=== PATIENT | female | born 1975 | race Caucasian/White ===

== ENCOUNTER 2023-11-26 22:47 | Emergency (ER) | payer OTHER ==
[~2023-11-26] VITALS: Ht 170.2 cm; Wt 85.3 kg
[2023-11-26 22:52] VITALS: BP_SYST 124; PULSE 69; RESP 18; TEMP 97.3; O2SAT 98
[2023-11-27] MEDS: KETOROLAC TROMETHAMINE 60 MG/2 ML VIAL IM ONE (00:10)
[2023-11-27] MEDS ORDERED: NAPR-1172 PO (01:48)
[2023-11-27 01:52] VITALS: BP_SYST 124; PULSE 69; RESP 18; TEMP 97.3; O2SAT 98
== END 2023-11-27 01:52 | disposition home or self-care (01) ==
LOC: SED 22:47
DX: S33.5XXA Sprain of ligaments of lumbar spine, initial encounter (principal); Z79.899 Other long term (current) drug therapy; X58.XXXA Exposure to other specified factors, initial encounter; Y93.89 Activity, other specified; Y92.89 Other specified places as the place of occurrence of the external cause; Y99.8 Other external cause status
CPT/HCPCS: 99285; 72131; 96372; J1885